=== PATIENT | female | born 1970 | race Caucasian/White ===

== ENCOUNTER 2016-08-21 21:30 | Emergency (ER) | payer BC ==
[2016-08-21 21:35] VITALS: BP 125/63; PULSE 88; TEMP 98.5; BMI 24.4
--- NOTE | 2016-08-21 21:40 | PDOC ---
History of Present Illness - General Chief Complaint: Shortness of Breath Stated Complaint: EXHAUSTION, TRANSIENT SOB Time Seen by Provider: 08/21/16 21:37 History Source: Patient Exam Limitations: No Limitations - History of Present Illness Initial Comments: 08/21/16 23:35 This is a 45-year-old female who comes in complaining of fatigue, anxiety and shortness of breath. Patient is also complaining of some right lower extremity leg or abdominal pain. Patient is complaining of some intermittent palpitations. Patient has a history of anxiety and says that she has not been getting enough sleep and feels exhausted as well. Swelling. Patient has had symptoms intermittent for about a week and a half now. Patient denies any fevers or chills. Patient denies any cough or congestion. Patient denies any recent travel. Patient is not on control and denies any DVT or PE risk factors. Patient denies any chest pain PAST MEDICAL HISTORY: no significant history PAST SURGICAL HISTORY: no significant history FAMILY HISTORY: no pertinant history SOCIAL HISTORY: Pt lives with family and is employed. MEDICATIONS: reviewed ALLERGIES: As per nursing notes Review of Systems General: No fevers or chills, no weakness, no weight loss HEENT: No change in vision. No sore throat,. No ear pain CardioVascular: No chest pain or shortness of breath Respiratory:No cough, or wheezing. Gastrointestinal: no nausea, vomitting, diarrhea or constipation, No rectal bleeding Genitourinary: No dysuria, hematuria, or frequency Musculoskeletal: No joint or muscle pain or swelling Neurologic: No headache, vertigo, dizziness or loss of consciousness Psychiatric: nor depression Skin: No rashes or easy bruising Endocrine: no increased thirst or abnormal weight change Allergic: no skin or latex allergy All other systems reviewed and normal Exam: General: Well-nourished well-developed individual, no acute distress HEENT: Throat: Normal, tonsils normal, no erythema or exudate Neck: Supple, no meningeal signs, no lymphadenopathy Eyes::Pupils equal reactive and round, extraocular motion intact Chest: Nontender to palpation Cardiac: S1-S2 normal, regular rate and rhythm, no murmurs rubs or gallops Respiratory: Lungs clear to auscultation bilateral Abdomen: Soft, nondistended, normal bowel sounds, nontender to palpation diffusely Extremities: Warm, dry, no cyanosis, clubbing, or edema Skin: No rashes Neuro: Alert and oriented x3, nonfocal exam, grossly intact, normal gait Psych: Normal mood and affect Chest x-ray no acute pathology Lab work is normal including negative d-dimer Ultrasound Doppler was done is negative for DVT Assessment and plan: This is a 45-year-old female with vague nonspecific shortness of breath and fatigue complaints. Patient has a history of anxiety and this is most likely secondary to her anxiety. As her workup was negative for any acute medical cause for her symptoms. Patient discharged and told to follow-up with her primary care doctor. Past History - Past Medical History Allergies/Adverse Reactions: Allergies Allergy/AdvReac Type Severity Reaction Status Date / Time codeine AdvReac Intermediate Nausea Verified 08/04/15 20:18 Home Medications: Ambulatory Orders NK [No Known Home Medication] 08/04/15 Other medical history: DENIES - Psycho/Social/Smoking Cessation Hx Anxiety: No Suicidal Ideation: No Smoking History: Never smoked Have you smoked in the past 12 months: Yes Number of Cigarettes Smoked Daily: 3 'Breaking Loose' booklet given: 07/01/15 Hx Alcohol Use: No Drug/Substance Use Hx: No Substance Use Type: None *Physical Exam - Vital Signs Last Vital Signs Temp Pulse Resp BP Pulse Ox 98.5 F 88 16 125/63 100 08/21/16 21:32 08/21/16 21:32 08/21/16 21:32 08/21/16 21:32 08/21/16 21:32 ED Treatment Course - LABORATORY CBC & Chemistry Diagram: 08/21/16 22:10 08/21/16 22:10 *DC/Admit/Observation/Transfer Diagnosis at time of Disposition: Anxiety - Discharge Dispostion Disposition: HOME Condition at time of disposition: Stable - Patient Instructions Additional Instructions: Your workup was negative for any acute medical causes for your symptoms. I think your symptoms most likely are secondary to some stress and anxiety and lack of sleep. Consider following up with a therapist if symptoms persist also taking a class to help you return relaxation techniques such as yoga. Return to the emergency department immediately with ANY new, persistent or worsening symptoms. Continue any medications as previously prescribed by your physician. You should follow up with your primary doctor as soon as possible regarding today's emergency department visit. . Please make sure your doctor reviews the results of your emergency evaluation. Thank you for coming to the Emergency Department today for your care. It was a pleasure to see you today. Please note that your evaluation is INCOMPLETE until you follow-up with your doctor.
[2016-08-21 22:22] LABS: BASOPHIL 0.4 % (0-2.0); EOSINOPHIL 2.4 % (0-4.5); MCH 30.2 pg (25.7-33.7); MCHC 33.2 g/dl (32.0-36.0); MEAN CELL VOLUME 91.1 fl (80-96); MEAN PLT VOLUME 7.7 fl (7.5-11.1); NEUTROPHILS 54.5 % (42.8-82.8); PLATELET COUNT 267 K/MM3 (134-434); RDW 12.8 % (11.6-15.6); WHITE BLOOD COUNT 7.2 K/mm3 (4.0-10.0)
[2016-08-21 22:42] LABS: ALBUMIN 3.9 g/dl (3.5-5.0); ALK PHOS 50 U/L (32-92); ANION GAP 7 (8-16); BILIRUBIN,TOTAL 0.3 mg/dl (0.2-1.0); CALCIUM 9.4 mg/dl (8.4-10.2); CO2 29 mmol/L (22-28); CPK(DFH) 92 IU/L (26-140); CREATININE 0.7 mg/dl (0.6-1.3); GLUCOSE,RANDOM 129 mg/dl (74-106); SGOT/AST 17 U/L (10-42); SGPT/ALT 14 U/L (10-40); TOT PROT 6.8 g/dl (6.4-8.3)
[2016-08-21 22:58] LABS: TROPONIN I (DFP) < 0.03 ng/ml (0.03-0.50)
--- NOTE | 2016-08-23 10:32 | EKG ---
Test Reason : Blood Pressure : / mmHG Vent. Rate : 072 BPM Atrial Rate : 072 BPM P-R Int : 144 ms QRS Dur : 088 ms QT Int : 380 ms P-R-T Axes : 046 007 052 degrees QTc Int : 416 ms NORMAL SINUS RHYTHM INCOMPLETE RBBB Confirmed by JACINTA CRAIG MD ([id number]) on 08/23/2016 10:32:15 AM Referred By: MD FIELDS Confirmed By:JACINTA CRAIG MD
== END 2016-08-21 23:50 | disposition home or self-care (01) ==
LOC: FER 21:30
DX: F41.9 Anxiety disorder, unspecified (principal); Z72.0 Tobacco use
CPT/HCPCS: 36415; 71010-TC; 80053; 82550; 84484; 85025; 85379; 93005; 93971-TC; 99282-25

== ENCOUNTER 2016-12-15 22:47 | Emergency (ER) | payer BC ==
[2016-12-15 22:54] VITALS: BP 138/83; PULSE 93; TEMP 98.5; BMI 23.6
--- NOTE | 2016-12-15 22:55 | PDOC ---
History of Present Illness - General Chief Complaint: Lightheaded Stated Complaint: LIGHTHEADE X ONE WEEK/DIARRHEA X 3 Time Seen by Provider: 12/15/16 22:51 History Source: Patient Exam Limitations: No Limitations - History of Present Illness Initial Comments: 46 yo F no PMH presents with 1 week of lightheadedness. She states that it is constant, unchanged by position, activity, exercise. She has had similar symptoms once in the past, self-limited. She denies any vertiginous symptoms. No cp, SOB, leg swelling. She notes that she had poor appetite today, did not eat or drink, and had an episode of diarrhea. She states that she does not like to drink water, usually drinks soda or tamir. Past History - Past Medical History Allergies/Adverse Reactions: Allergies Allergy/AdvReac Type Severity Reaction Status Date / Time codeine AdvReac Intermediate Nausea Verified 12/15/16 22:49 Home Medications: Ambulatory Orders NK [No Known Home Medication] 08/04/15 Other medical history: DENIES - Psycho/Social/Smoking Cessation Hx Anxiety: No Suicidal Ideation: No Smoking History: Never smoked Have you smoked in the past 12 months: Yes Number of Cigarettes Smoked Daily: 3 Information on smoking cessation initiated: No 'Breaking Loose' booklet given: 07/01/15 Hx Alcohol Use: No Drug/Substance Use Hx: No Substance Use Type: None Review of Systems - Review of Systems Able to Perform ROS?: Yes Comments:: GENERAL/CONSTITUTIONAL: No fever or chills. No weakness. HEAD, EYES, EARS, NOSE AND THROAT: No change in vision. No ear pain or discharge. No sore throat. CARDIOVASCULAR: No chest pain or shortness of breath. RESPIRATORY: No cough, wheezing, or hemoptysis. GASTROINTESTINAL: No nausea, vomiting, diarrhea or constipation. GENITOURINARY: No dysuria, frequency, or change in urination. MUSCULOSKELETAL: No joint or muscle swelling or pain. No neck or back pain. SKIN: No rash NEUROLOGIC: No headache, vertigo, loss of consciousness, or change in strength/ sensation. ENDOCRINE: No increased thirst. No abnormal weight change. HEMATOLOGIC/LYMPHATIC: No anemia, easy bleeding, or history of blood clots. ALLERGIC/IMMUNOLOGIC: No hives or skin allergy. *Physical Exam - Vital Signs Last Vital Signs Temp Pulse Resp BP Pulse Ox 98.5 F 93 H 16 138/83 99 12/15/16 22:50 12/15/16 22:50 12/15/16 22:50 12/15/16 22:50 12/15/16 22:50 - Physical Exam Comments: GENERAL: Awake, alert, and fully oriented, in no acute distress HEAD: No signs of trauma EYES: PERRLA, EOMI, sclera anicteric, conjunctiva clear ENT: Auricles normal inspection, hearing grossly normal, nares patent, oropharynx clear without exudates. Dry mucosa NECK: Normal ROM, supple, no lymphadenopathy, JVD, or masses LUNGS: Breath sounds equal, clear to auscultation bilaterally. No wheezes, and no crackles HEART: Regular rate and rhythm, normal S1 and S2, no murmurs, rubs or gallops ABDOMEN: Soft, nontender, normoactive bowel sounds. No guarding, no rebound. No masses EXTREMITIES: Normal range of motion, no edema. No clubbing or cyanosis. No cords, erythema, or tenderness NEUROLOGICAL: Cranial nerves II through XII grossly intact. Normal speech, normal gait SKIN: Warm, Dry, normal turgor, no rashes or lesions noted. Heart Score/ECG Review - ECG Impressions Comment:: EKG read 01:14- NSR 90 bpm, no acute ST/T changes. ED Treatment Course - LABORATORY CBC & Chemistry Diagram: 12/15/16 23:15 12/15/16 23:15 Medical Decision Making - Medical Decision Making 12/16/16 01:02 Pt reports improvement in symptoms s/p IV fluids. Stable for DC home. *DC/Admit/Observation/Transfer Diagnosis at time of Disposition: Dizziness - Discharge Dispostion Disposition: HOME Condition at time of disposition: Stable Admit: No - Patient Instructions Printed Discharge Instructions: DI for Dizziness-Nonvertigo
[2016-12-15] MEDS ORDERED: SODIUM CHLORIDE 1,000 ML IV STA (23:09)
[2016-12-16 00:03] LABS: PH,URINE 5.5 (4.5-8); URINE APPEARANCE Clear; URINE BILIRUBIN Negative (NEGATIVE); URINE BLOOD 1+ (NEGATIVE); URINE COLOR YELLOW; URINE GLUCOSE (UA) Negative (NEGATIVE); URINE KETONE Negative (NEGATIVE); URINE LEUK ESTERASE Negative (NEGATIVE); URINE NITRITE Negative (NEGATIVE); URINE PROTEIN Negative (NEGATIVE); URINE UROBILINOGEN 0.2 E.U/dl (0.2-1.0)
[2016-12-16 00:26] LABS: TROPONIN I (DFP) < 0.03 ng/ml (0.03-0.50)
[2016-12-16 00:35] LABS: CPK(DFH) 83 IU/L (26-140)
[2016-12-16 00:36] LABS: ALBUMIN 4.3 g/dl (3.5-5.0); ALK PHOS 57 U/L (32-92); ANION GAP 8 (8-16); CALCIUM 9.4 mg/dl (8.4-10.2); CO2 26 mmol/L (22-28); CREATININE 0.7 mg/dl (0.6-1.3); GLUCOSE,RANDOM 130 mg/dl (74-106); SGOT/AST 17 U/L (10-42); SGPT/ALT 15 U/L (10-40); TOT PROT 7.6 g/dl (6.4-8.3)
[2016-12-16 00:38] LABS: COCKROFT - GAULT NT
[2016-12-16 00:47] LABS: BASOPHIL 0.1 % (0-2.0); EOSINOPHIL 1.6 % (0-4.5); MCH 30.3 pg (25.7-33.7); MCHC 32.7 g/dl (32.0-36.0); MEAN CELL VOLUME 92.5 fl (80-96); NEUTROPHILS 68.9 % (42.8-82.8); PLATELET COUNT 263 K/MM3 (134-434); RDW 13.6 % (11.6-15.6); WHITE BLOOD COUNT 9.4 K/mm3 (4.0-10.0)
[2016-12-16 00:48] LABS: BILIRUBIN,TOTAL < 0.3 mg/dl (0.2-1.0)
--- NOTE | 2016-12-16 14:28 | EKG ---
Test Reason : Blood Pressure : / mmHG Vent. Rate : 090 BPM Atrial Rate : 090 BPM P-R Int : 146 ms QRS Dur : 072 ms QT Int : 354 ms P-R-T Axes : 018 012 031 degrees QTc Int : 433 ms POOR DATA QUALITY, INTERPRETATION MAY BE ADVERSELY AFFECTED SINUS RHYTHM RSR' OR QR PATTERN IN V1 SUGGESTS RIGHT VENTRICULAR CONDUCTION DELAY WHEN COMPARED WITH ECG OF 21-AUG-2016 21:45, NO SIGNIFICANT CHANGE WAS FOUND Confirmed by KENIA VALENZUELA MD ([id number]) on 12/16/2016 2:28:18 PM Referred By: MD RAMACHANDRAN Confirmed By:KENIA VALENZUELA MD
== END 2016-12-16 01:16 | disposition home or self-care (01) ==
LOC: FER 22:47
PROC: 3E0337Z Introduction of Electrolytic and Water Balance Substance into Peripheral Vein, Percutaneous Approach (ICD-10-PCS; principal; 2016-12-15)
DX: R42 Dizziness and giddiness (principal); Z72.0 Tobacco use
CPT/HCPCS: 36415; 80053; 81003; 82550; 84484; 84703; 85025; 93005; 99281-25

== ENCOUNTER 2017-11-16 11:11 | Emergency (ER) | payer BC ==
[2017-11-16] MEDS ORDERED: DIPHTH,PERTUSS(ACELL),TET 0.5 ML DISP.SYRIN IM ONE (11:34)
--- NOTE | 2017-11-16 11:40 | PDOC ---
History of Present Illness - General Chief Complaint: Blood/Body Fluid Exposure SJR Stated Complaint: RT THUMB NEEDLE STICK Time Seen by Provider: 11/16/17 11:22 History Source: Patient Exam Limitations: No Limitations - History of Present Illness Initial Comments: 11/16/17 11:33 Patient is a 47F with no significant medical history here today complaining of a needle stick exposure. Patient says that she was stuck by a needle that was around a cat carrier that she was transporting a cat in. The cat was feral but friendly with humans and showed no abnormal behaviors. The patient complains of several minor abrasions on her skin as well from the cat. The needle broke the skin and the patient bled a small amount. The patient brought in the needle in question. The needle is a small gauge hollow point needle with no blood visible. Past History - Past Medical History Allergies/Adverse Reactions: Allergies Allergy/AdvReac Type Severity Reaction Status Date / Time codeine AdvReac Intermediate Nausea Verified 11/16/17 11:14 Home Medications: Ambulatory Orders NK [No Known Home Medication] 08/04/15 - Suicide/Smoking/Psychosocial Hx Smoking History: Never smoked Have you smoked in the past 12 months: Yes Number of Cigarettes Smoked Daily: 3 'Breaking Loose' booklet given: 07/01/15 Hx Alcohol Use: No Drug/Substance Use Hx: No Substance Use Type: None Review of Systems - Review of Systems Comments:: 11/16/17 11:40 GENERAL/CONSTITUTIONAL: No fever or chills. No weakness. HEAD, EYES, EARS, NOSE AND THROAT: No change in vision. No sore throat. CARDIOVASCULAR: No chest pain or shortness of breath RESPIRATORY: No cough, wheezing, or hemoptysis. GASTROINTESTINAL: No nausea, vomiting, diarrhea or constipation. GENITOURINARY: No dysuria, frequency, or change in urination. MUSCULOSKELETAL: No joint or muscle swelling or pain. No neck or back pain. SKIN: No rash NEUROLOGIC: No headache, vertigo, loss of consciousness, or change in strength/ sensation. *Physical Exam - Physical Exam Comments: 11/16/17 11:41 GENERAL: Awake, alert, and fully oriented, in no acute distress SKIN: No visible needle stick injury, small abrasion on left thumb and right elbow. HEAD: No signs of trauma, normocephalic, atraumatic EYES: PERRLA, EOMI, sclera anicteric, conjunctiva clear LUNGS: No distress, speaks full sentences, clear to auscultation bilaterally HEART: Regular rate and rhythm, normal S1 and S2, no murmurs, rubs or gallops, peripheral pulses normal and equal bilaterally. ABDOMEN: Soft, nontender, normoactive bowel sounds. No guarding, no rebound. No masses EXTREMITIES: Normal inspection, Normal range of motion, no edema. No clubbing or cyanosis. NEUROLOGICAL: Cranial nerves II through XII grossly intact. Normal speech, normal gait, no focal sensorimotor deficits Medical Decision Making - Medical Decision Making 11/16/17 11:43 Patient is a 47F here today with needle stick exposure. Vital signs normal and stable. Patient was directed to wash hands, which was done thoroughly. No visible exposure. After risks and benefits were discussed, patient states that she does not want PEP at this time. Will test patient for HIV, HCV, HBV, and HAV. Baseline CBC and CMP drawn. Unknown last tetanus, will give boosterix today. *DC/Admit/Observation/Transfer Diagnosis at time of Disposition: Needle exposure - Discharge Dispostion Disposition: HOME Condition at time of disposition: Good Decision to Admit order: No - Referrals - Patient Instructions Printed Discharge Instructions: How to Handle Body Fluid Exposure -- Non- Healthcare Worker (At Home, [facility] Additional Instructions: You were seen today in the ED for exposure to a needle and a cat scratch. Please follow up with your primary care doctor regarding the needle exposure. Please use bacitracin and keep the cat scratches clean. Please return to the ED if they show any sign of infection such as: fever, redness, swelling or discharging of pus. Please return if you have any new, worsening or concerning symptoms. - Post Discharge Activity
[2017-11-16 11:45] VITALS: BP 110/75; PULSE 91; TEMP 98.4; BMI 23.3
--- NOTE | 2017-11-16 12:06 | PDOC ---
Attending Attestation - Resident Resident Name: Konstantin Magana - ED Attending Attestation I have performed the following: I have examined & evaluated the patient, The case was reviewed & discussed with the resident, I agree w/resident's findings & plan, Exceptions are as noted - HPI HPI: 11/16/17 12:02 47-year-old femalesignificant past medical history here today with a puncture wound from an unknown needle found in a pet box into her right thumb. Was a hollow bore small guage needle. She did place some antiseptic at the site initially and has since washed her hands. No known history of HIV or hepatitis C. The reserve the needle is unknown patient's last tetanus is unknown - Physicial Exam PE: 11/16/17 12:04 Awake alert no acute distress cardiac and lung exam is unremarkable with fair breath sounds bilaterally heart is regular no murmurs rubs or gallops. Skin examination reveals a small nonbleeding and punctate wound to the right thumb barely visible no active bleeding neurovascularly intact - Medical Decision Making 11/16/17 12:05 Status post needle stick to the right thumb with an unknown needle. Plan send baseline HIV hepatitis C and liver function studies. Patient will be given a tetanus due to the small gauge of the needle it is small wrist or HIV therefore the patient is declining HIV prophylaxis informed regarding the need to follow- up with a 6 week 6 month follow-up for possible seizure conversion recall the results of the tests from today
[2017-11-16 12:08] LABS: HEMATOCRIT 40.6 % (32.4-45.2); HEMOGLOBIN 13.9 GM/dl (10.7-15.3); MCH 31.6 pg (25.7-33.7); MCHC 34.4 g/dl (32.0-36.0); MEAN CELL VOLUME 91.9 fl (80-96); MEAN PLT VOLUME 8.1 fl (7.5-11.1); PLATELET COUNT 297 K/MM3 (134-434); RBC 4.42 M/mm3 (3.60-5.2); RDW 13.3 % (11.6-15.6); WHITE BLOOD COUNT 8.6 K/mm3 (4.0-10.8)
[2017-11-16 12:25] LABS: ALBUMIN 4.3 g/dl (3.5-5.0); ALK PHOS 53 U/L (32-92); ANION GAP 6 (8-16); BILIRUBIN,TOTAL 0.8 mg/dl (0.2-1.0); BLOOD UREA NITROGEN 17 mg/dl (7-18); CALCIUM 9.1 mg/dl (8.4-10.2); CHLORIDE 104 mmol/L (98-107); CO2 22 mmol/L (22-28); GLUCOSE,RANDOM 83 mg/dl (74-106); POTASSIUM 4.4 mmol/L (3.5-5.1); SGOT/AST 18 U/L (10-42); SGPT/ALT 13 U/L (10-40); SODIUM 132 mmol/L (136-145); TOT PROT 7.4 g/dl (6.4-8.3)
[2017-11-16 12:35] LABS: CREATININE < 0.8 mg/dl (0.6-1.3)
[2017-11-17 14:17] LABS: HBSAG SCREEN Negative (Negative); HEP B CORE AB, TOT Negative (Negative)
== END 2017-11-16 12:00 | disposition home or self-care (01) ==
LOC: FER 11:11
PROC: 3E0234Z Introduction of Serum, Toxoid and Vaccine into Muscle, Percutaneous Approach (ICD-10-PCS; principal; 2017-11-16)
DX: T75.89XA Other specified effects of external causes, initial encounter (principal); W46.1XXA Contact with contaminated hypodermic needle, initial encounter; Y93.89 Activity, other specified; Y92.89 Other specified places as the place of occurrence of the external cause; Z88.5 Allergy status to narcotic agent
CPT/HCPCS: 36415; 80053; 85027; 86704; 86706; 86708; 87340; 87389; 90715; 99282-25

== ENCOUNTER 2018-09-01 22:41 | Emergency (ER) | payer BC ==
[2018-09-01 22:51] VITALS: BP 119/75; PULSE 85; TEMP 97.9; BMI 23.8
--- NOTE | 2018-09-01 22:52 | PDOC ---
History of Present Illness <Laura Cooper - Last Filed: 09/01/18 23:44> - General History Source: Patient Exam Limitations: No Limitations <Flakita Candelaria I - Last Filed: 09/01/18 23:56> - General Chief Complaint: Palpitations Stated Complaint: HEART RACING/DIARRHEA Time Seen by Provider: 09/01/18 22:51 - History of Present Illness Initial Comments: The patient is a 47 year old female (former smoker, quit 2 years ago), with no significant PMH, who presents to the emergency department today complaining of chest palpitations, abdominal pain, and diarrhea for one day. Patient notes she began to experience chest palpitations shortly after falling asleep prior to arrival. She notes that she ate dinner approximately 4 hours ago (chicken cutlets), and fell asleep shortly after. Patient woke up to chest palpitations, what she describes as tightness and burning. She measured her heart rate at 100 bpm and her blood pressure at 140 systolic (doesnt recall diastolic). Patient notes she saw a fancy needleworker 2 years ago, and said that there was something on her EKG but she doesnt recall. She notes that her ECCO was normal at the time. Patient reports associated belching, nausea, and chills. She also complains of diffuse abdominal pain and diarrhea. Patient rates the diffuse abdominal pain as 3/10. She reports 2 episodes of loose, watery stool. She reports one episode of diarrhea happened after waking up, and one upon arrival to the ED. Patient denies history of similar symptoms. The patient shortness of breath, headache and dizziness. Denies fever, vomit, and constipation. Denies dysuria, frequency, urgency and hematuria. PAST MEDICAL HISTORY: no significant history PAST SURGICAL HISTORY: no significant history FAMILY HISTORY: Mitral valve prolapse (Mother), AICD (Father), 2 stents (Father ), and vaso-vagal syncope (father) SOCIAL HISTORY: Pt lives with family and is employed. Former smoker, quit 2 years ago (used to smoke 1 pack a day for 6 years) MEDICATIONS: reviewed ALLERGIES: Codeine PCP; Dr. Tuyet Mcfarland Adult ROS General: +Chills. No fevers, no weakness, no weight loss HEENT: No change in vision. No sore throat,. No ear pain CardioVascular: +Chest palpitations. +Chest tightness. +Chest burning. No shortness of breath Respiratory:No cough, or wheezing. Gastrointestinal: +Belching. +Nausea. +2 episodes of diarrhea- loose & watery stool. No vomiting or constipation, No rectal bleeding Genitourinary: No dysuria, hematuria, or frequency Abdominal: +Diffuse abdominal pain. Musculoskeletal: No joint or muscle pain or swelling Neurologic: No headache, vertigo, dizziness or loss of consciousness Psychiatric: nor depression Skin: No rashes or easy bruising Endocrine: no increased thirst or abnormal weight change Allergic: no skin or latex allergy All other systems reviewed and normal Adult Exam: General: Well-nourished well-developed individual, no acute distress HEENT: Throat: Normal, tonsils normal, no erythema or exudate Neck: Supple, no meningeal signs, no lymphadenopathy Eyes::Pupils equal reactive and round, extraocular motion intact Chest: Nontender to palpation Cardiac: S1-S2 normal, regular rate and rhythm, no murmurs rubs or gallops Respiratory: Lungs clear to auscultation bilateral Abdomen: Soft, nondistended, normal bowel sounds, nontender to palpation diffusely Extremities: Warm, dry, no cyanosis, clubbing, or edema Skin: No rashes Neuro: Alert and oriented x3, nonfocal exam, grossly intact, normal gait Psych: Normal mood and affect 09/01/18 23:44 (Laura Cooper) 09/01/18 23:08 A portion of this note was documented by scribe services under my direction. I have reviewed the details of the note, within reason, and agree with the documentation with the following case summary and management plan written by me. Patient treated in the ED. Nursing notes are reviewed and incorporated into the medical decision-making. Vital signs reviewed. Assessment and plan: This is a 47-year-old female who comes in complaining of acute onset of palpitations that lasted briefly. Patient fell asleep sitting up and when she woke up she felt palpitations and a burning sensation in her esophagus/substernal area. Symptoms have since resolved. Patient did check her blood pressure which was normal and heart rate which was 100. Patient has a couple risk factors including a smoking history and stopped several years ago after his 6-pack-year history and a father who has coronary artery disease and has had 3 stents We'll obtain CBC, comp, EKG and cardiac enzymes. 09/01/18 23:56 EKG shows normal sinus rhythm, normal intervals, no acute ST-T wave changes normal EKG Cardiac enzymes are not measurable, patient's glucose is mildly elevated at 123 otherwise her workup is normal (Flakita Candelaria I) Past History <Laura Cooper - Last Filed: 09/01/18 23:44> - Past Medical History COPD: No - Immunization History Td Vaccination: Yes Immunization Up to Date: Yes - Suicide/Smoking/Psychosocial Hx Smoking History: Never smoked Have you smoked in the past 12 months: No Number of Cigarettes Smoked Daily: 3 'Breaking Loose' booklet given: 07/01/15 Hx Alcohol Use: No Drug/Substance Use Hx: No Substance Use Type: None <Flakita Candelaria I - Last Filed: 09/01/18 23:56> - Past Medical History Allergies/Adverse Reactions: Allergies Allergy/AdvReac Type Severity Reaction Status Date / Time codeine AdvReac Intermediate Nausea Verified 12/20/17 20:18 Home Medications: Ambulatory Orders NK [No Known Home Medication] 09/01/18 - Vital Signs Last Vital Signs Temp Pulse Resp BP Pulse Ox 97.9 F 85 16 119/75 100 09/01/18 22:41 09/01/18 22:41 09/01/18 22:41 09/01/18 22:41 09/01/18 22:41 - Procedure Monitoring Vital Signs: Procedure Monitoring Vital Signs Temperature 97.9 F 09/01/18 22:41 Pulse Rate 85 09/01/18 22:41 Respiratory Rate 16 09/01/18 22:41 Blood Pressure 119/75 09/01/18 22:41 O2 Sat by Pulse Oximetry (%) 100 09/01/18 22:41 ED Treatment Course - LABORATORY CBC & Chemistry Diagram: 09/01/18 23:00 09/01/18 23:00 <Laura Cooper - Last Filed: 09/01/18 23:44> - LABORATORY CBC & Chemistry Diagram: 09/01/18 23:00 09/01/18 23:00 <Flakita Candelaria I - Last Filed: 09/01/18 23:56> - ADDITIONAL ORDERS Additional order review: Laboratory Results 09/01/18 09/01/1809/01/19 23:00 23:00 23:00 Sodium 135 L Potassium 3.5 Chloride 101 Anion Gap 28 H BUN 14 Creatinine 0.7 Creat Clearance w eGFR > 60 Random Glucose 123 H Calcium 9.1 Total Bilirubin 0.7 AST 20 ALT 15 Alkaline Phosphatase 58 Creatine Kinase 86 Troponin I < 0.03 Total Protein 6.8 Albumin 3.9 09/01/18 23:00 RBC 4.06 MCV 92.1 MCHC 33.2 RDW 12.5 MPV 8.3 Neutrophils % 55.9 Lymphocytes % 32.2 Monocytes % 9.5 Eosinophils % 1.6 Basophils % 0.8 - Medications Given in the ED: ED Medications Discontinued Medications Generic Name Dose Route Start Last Admin Trade Name Santyq PRN Reason Stop Dose Admin Al Hydroxide/Mg Hydroxide 30 ml 09/01/18 22:56 09/01/18 23:14 Mylanta Oral Suspension - PO 09/01/18 22:57 30 ml ONCE ONE Administration Loperamide HCl 4 mg 09/01/18 23:06 09/01/18 23:33 Imodium - PO 09/01/18 23:07 4 mg ONCE ONE Administration *DC/Admit/Observation/Transfer <Laura Cooper - Last Filed: 09/01/18 23:44> - Discharge Dispostion Decision to Admit order: No <Flakita Candelaria I - Last Filed: 09/01/18 23:56> Diagnosis at time of Disposition: Palpitations - Discharge Dispostion Disposition: HOME Condition at time of disposition: Stable - Referrals Referrals: Tuyet Mcfarland MD [Primary Care Provider] - - Patient Instructions Additional Instructions: Most likely her symptoms are due to some acid reflux. If they recur take some Maalox or Tums. You're cardiogram was normal. Your workup was negative for any acute causes of your symptoms. Return to the emergency department immediately with ANY new, persistent or worsening symptoms. Continue any medications as previously prescribed by your physician. You should follow up with your primary doctor as soon as possible regarding today's emergency department visit. . Please make sure your doctor reviews the results of your emergency evaluation. Thank you for coming to the Emergency Department today for your care. It was a pleasure to see you today. Please note that your evaluation is INCOMPLETE until you follow-up with your doctor. - Post Discharge Activity - Attestations Scribe Attestion: Documentation prepared by MIMA Quach, acting as associate medical director for Flakita Candelaria MD. 09/01/18 23:44 (Laura Cooper)
[2018-09-01] MEDS ORDERED: MAG HYDROX/AL HYDROX/SIMETH 30 ML UNIT-DOSE CUP PO ONE (22:56)
[2018-09-01] MEDS ORDERED: MAG HYDROX/AL HYDROX/SIMETH 30 ML UNIT-DOSE CUP ONE (23:04)
[2018-09-01] MEDS ORDERED: LOPERAMIDE HCL 2 MG CAPSULE PO ONE (23:06)
[2018-09-01 23:21] LABS: BASO % 0.8 % (0-2.0); EOS % 1.6 % (0-4.5); HEMATOCRIT 37.4 % (32.4-45.2); HEMOGLOBIN 12.4 GM/dl (10.7-15.3); LYMPH % 32.2 % (8-40); MCH 30.6 pg (25.7-33.7); MCHC 33.2 g/dl (32.0-36.0); MEAN CELL VOLUME 92.1 fl (80-96); MEAN PLT VOLUME 8.3 fl (7.5-11.1); MONO % 9.5 % (3.8-10.2); NEUT % 55.9 % (42.8-82.8); PLATELET COUNT 237 K/MM3 (134-434); RBC 4.06 M/mm3 (3.60-5.2); RDW 12.5 % (11.6-15.6)
[2018-09-01] MEDS ORDERED: LOPERAMIDE HCL 2 MG CAPSULE ONE (23:31)
[2018-09-01 23:33] LABS: ALBUMIN 3.9 g/dl (3.4-5.0); ALK PHOS 58 U/L (45-117); ANION GAP 28 MMOL/L (8-16); BILIRUBIN,TOTAL 0.7 mg/dl (0.2-1); BLOOD UREA NITROGEN 14 mg/dl (7-18); CALCIUM 9.1 mg/dl (8.5-10); CHLORIDE 101 mmol/L (98-107); CREATININE 0.7 mg/dl (0.55-1.3); GLUCOSE,RANDOM 123 mg/dl (74-106); POTASSIUM 3.5 mmol/L (3.5-5.1); SGOT/AST 20 U/L (15-37); SGPT/ALT 15 U/L (13-61); SODIUM 135 mmol/L (136-145); TOT PROT 6.8 g/dl (6.4-8.2)
[2018-09-02] LABS: CO2 23 mmol/L (21-32)
--- NOTE | 2018-09-02 15:05 | EKG ---
Test Reason : Blood Pressure : / mmHG Vent. Rate : 078 BPM Atrial Rate : 078 BPM P-R Int : 164 ms QRS Dur : 084 ms QT Int : 370 ms P-R-T Axes : 025 026 051 degrees QTc Int : 421 ms NORMAL SINUS RHYTHM NORMAL ECG WHEN COMPARED WITH ECG OF 16-DEC-2016 01:10, NO SIGNIFICANT CHANGE WAS FOUND Confirmed by JACINTA CRAIG MD ([id number]) on 09/02/2018 3:05:08 PM Referred By: DR HEAD Confirmed By:JACINTA CRAIG MD
== END 2018-09-02 00:05 | disposition home or self-care (01) ==
LOC: FER 22:41
DX: R00.2 Palpitations (principal); Z87.891 Personal history of nicotine dependence
CPT/HCPCS: 36415; 80053; 82550; 84484; 85025; 93005; 99283-25

== ENCOUNTER 2018-10-10 19:30 | Emergency (ER) | payer BC ==
[2018-10-10 19:37] VITALS: BP 110/85; PULSE 114; TEMP 99.4; BMI 23.4
[2018-10-10] MEDS ORDERED: SODIUM CHLORIDE 1,000 ML IV ONE ×2 (19:53→20:55)
[2018-10-10] MEDS ORDERED: ONDANSETRON 4 MG/2 ML VIAL IVPB ONE (19:53)
--- NOTE | 2018-10-10 19:54 | PDOC ---
History of Present Illness - General History Source: Patient Exam Limitations: No Limitations - History of Present Illness Initial Comments: 10/10/18 20:01 The patient is a 47 year old female presenting with family, who presents to the ED complaining of abdominal pain, back pain, headache, diarrhea, nausea and vomiting since 3am last night. She describes her abdominal pain as a sensation of "cramps", mild to moderate in severity. She reports that the last thing she ate was a hamburger at 11am and has not eating since due to her symptoms. She notes that she ate at a restaurant, where others in her libertarian also had hamburgers but are not experiencing any type of symptoms. The patient denies chest pain, shortness of breath, and dizziness. Denies fever , chills, or constipation. Denies dysuria, frequency, urgency and hematuria. LMP: 2018 PAST MEDICAL HISTORY: GERD PAST SURGICAL HISTORY: no significant history FAMILY HISTORY: no pertinent history SOCIAL HISTORY: Pt lives with family and is employed. MEDICATIONS: reviewed ALLERGIES: As per nursing notes GENERAL/CONSTITUTIONAL: No fever or chills. No weakness. HEAD, EYES, EARS, NOSE AND THROAT: No change in vision. No ear pain or discharge. No sore throat. GASTROINTESTINAL: (+) Abdominal pain, nausea, vomiting, diarrhea. No constipation. GENITOURINARY: No dysuria, frequency, or change in urination. CARDIOVASCULAR: No chest pain or shortness of breath. RESPIRATORY: No cough, wheezing, or hemoptysis. MUSCULOSKELETAL: (+) Back pain. No joint or muscle swelling or pain. No neck pain. SKIN: No rash NEUROLOGIC: (+) Headache. No vertigo, loss of consciousness, or change in strength/sensation. ENDOCRINE: No increased thirst. No abnormal weight change. HEMATOLOGIC/LYMPHATIC: No anemia, easy bleeding, or history of blood clots. ALLERGIC/IMMUNOLOGIC: No hives or skin allergy. Constitutional: Awake, alert, oriented. No acute distress. Head: Normocephalic. Atraumatic Eyes: PERRL. EOMI. Conjunctivae are not pale. ENT: (+) Mucous membranes are dry. Posterior pharynx without exudates or erythema. Uvula midline. Neck: Supple. Full ROM. No lymphadenopathy. Cardiovascular: (+) Mild tachycardia. Regular rhythm. S1, S2 regular. Distal pulses are 2+ and symmetric. Pulmonary/Chest: No evidence of respiratory distress. Clear to auscultation bilaterally No wheezing, rales or rhonchi. Abdominal: Soft and non-distended. There is no tenderness. No rebound, guarding or rigidity. No organomegaly. No palpable masses. Good bowel sounds. Back: No CVA tenderness. Musculoskeletal: No edema. No cyanosis. No clubbing. Full range of motion in all extremities. Nocalf tenderness. Radial/pedal pulses are intact and 2+ bilaterally Skin: Skin is warm and dry. No petechiae. No purpura. Neurological: Alert and oriented to person, place, and time. Cranial nerves II -XII are grossly intact. Normal speech. Strength is grossly symmetric. No sensory deficits. Psychiatric: Good eye contact. Normal interaction, affect and behavior. <Rosendo Mcdowell - Last Filed: 10/10/18 20:16> - General History Source: Patient Exam Limitations: No Limitations - History of Present Illness Initial Comments: 10/10/18 20:28 A portion of this note was documented by scribe services under my direction. I have reviewed the details of the note, within reason, and agree with the documentation with the following case summary and management plan written by me. Patient treated in the ED. Nursing notes are reviewed and incorporated into the medical decision-making. Vital signs reviewed. Assessment plan: This is a 47-year-old Perimenopausal female who comes in complaining of vomiting and diarrhea times approximately 15 hours. Patient does appear to be clinically dry with mild dehydration otherwise she had a normal exam. Patient hydrated with IV saline and given Zofran. 10/10/18 21:28 Patient received 2 L of saline and Zofran and Reglan. Prescription sent to patient's pharmacy for additional Zofran and patient discharged home. Patient's blood work was otherwise normal with normal white count and urine did show 2+ blood however no evidence of infection. <Flakita Candelaria I - Last Filed: 10/10/18 21:31> - General Chief Complaint: Vomiting/Diarrhea Stated Complaint: VOMITING, DIARRHEA Time Seen by Provider: 10/10/18 19:37 Past History <Rosendo Mcdowell - Last Filed: 10/10/18 20:16> - Past Medical History COPD: No Other medical history: DENIES - Immunization History Td Vaccination: Yes Immunization Up to Date: Yes - Suicide/Smoking/Psychosocial Hx Smoking History: Never smoked Have you smoked in the past 12 months: No Number of Cigarettes Smoked Daily: 3 Information on smoking cessation initiated: No 'Breaking Loose' booklet given: 09/02/18 Hx Alcohol Use: No Drug/Substance Use Hx: No Substance Use Type: None <Flakiat Candelaria I - Last Filed: 10/10/18 21:31> - Past Medical History Allergies/Adverse Reactions: Allergies Allergy/AdvReac Type Severity Reaction Status Date / Time codeine AdvReac Intermediate Nausea Verified 10/10/18 19:34 Home Medications: Ambulatory Orders Ondansetron [Zofran *Odt*] 8 mg SL TID #12 od.tablet 10/10/18 *Physical Exam - Vital Signs Last Vital Signs Temp Pulse Resp BP Pulse Ox 99.4 F 114 H 20 110/85 98 10/10/18 19:30 10/10/18 19:30 10/10/18 19:30 10/10/18 19:30 10/10/18 19:30 <Rosendo Mcdowell - Last Filed: 10/10/18 20:16> - Vital Signs Last Vital Signs Temp Pulse Resp BP Pulse Ox 99.4 F 114 H 20 110/85 98 10/10/18 19:30 10/10/18 19:30 10/10/18 19:30 10/10/18 19:30 10/10/18 19:30 <Flakita Candelaria I - Last Filed: 10/10/18 21:31> ED Treatment Course - LABORATORY CBC & Chemistry Diagram: 10/10/18 20:04 10/10/18 20:04 <Rosendo Mcdowell - Last Filed: 10/10/18 20:16> - LABORATORY CBC & Chemistry Diagram: 10/10/18 20:04 10/10/18 20:04 <Flakita Candelaria I - Last Filed: 10/10/18 21:31> *DC/Admit/Observation/Transfer - Attestations Scribe Attestion: 10/10/18 20:02 Documentation prepared by Rosendo Mcdowell, acting as medical record librarians teacher for Flakita Candelaria MD <Rosendo Mcdowell - Last Filed: 10/10/18 20:16> - Discharge Dispostion Decision to Admit order: No <Flakita Candelaria I - Last Filed: 10/10/18 21:31> Diagnosis at time of Disposition: Vomiting and diarrhea - Discharge Dispostion Disposition: HOME Condition at time of disposition: Stable - Referrals Referrals: Tuyet Mcfarland MD [Primary Care Provider] - - Patient Instructions Additional Instructions: I sent a prescription to your pharmacy for nausea medication you can get it filled and take one as often as 3 times a day as needed. Clear liquids only for the next 6 hours.. After that if you have had no further vomiting you may have bananas, rice, applesauce, or toast. If no further vomiting for another 8 hours you may have regular food. If you vomit again then nothing to eat or drink for 2 hours. then start back with the clear liquids. Return to the emergency department immediately with ANY new, persistent or worsening symptoms. You MUST call and follow up with your doctor tomorrow if not better. Please make sure your doctor reviews the results of your emergency evaluation. - Post Discharge Activity
[2018-10-10] MEDS ORDERED: ONDANSETRON 4 MG/2 ML VIAL ONE (20:07)
[2018-10-10 20:14] LABS: HEMATOCRIT 39.7 % (32.4-45.2); HEMOGLOBIN 12.9 GM/dl (10.7-15.3); MCH 30.3 pg (25.7-33.7); MCHC 32.5 g/dl (32.0-36.0); MEAN CELL VOLUME 93.3 fl (80-96); MEAN PLT VOLUME 8.4 fl (7.5-11.1); PLATELET COUNT 209 K/MM3 (134-434); RBC 4.26 M/mm3 (3.60-5.2); RDW 13.4 % (11.6-15.6); WHITE BLOOD COUNT 8.9 K/mm3 (4.0-10.8)
[2018-10-10 20:30] LABS: ALBUMIN 3.8 g/dl (3.4-5.0); ALK PHOS 52 U/L (45-117); ANION GAP 10 MMOL/L (8-16); BILIRUBIN,TOTAL 0.6 mg/dl (0.2-1); BLOOD UREA NITROGEN 14 mg/dl (7-18); CALCIUM 8.9 mg/dl (8.5-10); CHLORIDE 99 mmol/L (98-107); CO2 25 mmol/L (21-32); CREATININE 0.7 mg/dl (0.55-1.3); GLUCOSE,RANDOM 113 mg/dl (74-106); POTASSIUM 3.7 mmol/L (3.5-5.1); SGOT/AST 20 U/L (15-37); SGPT/ALT 15 U/L (13-61); SODIUM 134 mmol/L (136-145); TOT PROT 6.5 g/dl (6.4-8.2)
[2018-10-10] MEDS ORDERED: METOCLOPRAMIDE HCL INJECTION 10 MG/2 ML VIAL IVPUSH ONE (20:55)
[2018-10-10] MEDS ORDERED: METOCLOPRAMIDE HCL INJECTION 10 MG/2 ML VIAL ONE (20:56)
[2018-10-10 23:01] LABS: EPITHELIAL CELLS FEW /hpf
[2018-10-10 23:02] LABS: PLATELET ESTIMATE ADEQUATE
--- NOTE | 2018-10-11 14:45 | EKG ---
Test Reason : Blood Pressure : / mmHG Vent. Rate : 096 BPM Atrial Rate : 096 BPM P-R Int : 134 ms QRS Dur : 078 ms QT Int : 334 ms P-R-T Axes : 045 051 057 degrees QTc Int : 421 ms NORMAL SINUS RHYTHM NORMAL ECG WHEN COMPARED WITH ECG OF 01-SEP-2018 23:13, NO SIGNIFICANT CHANGE WAS FOUND Confirmed by Nathan Mccarthy ([id number]) on 10/11/2018 2:45:10 PM Referred By: Confirmed By:Nathan Mccarthy
== END 2018-10-10 21:49 | disposition home or self-care (01) ==
LOC: FER 19:30
PROC: 3E033GC Introduction of Other Therapeutic Substance into Peripheral Vein, Percutaneous Approach (ICD-10-PCS; principal; 2018-10-10)
PROC: 3E0337Z Introduction of Electrolytic and Water Balance Substance into Peripheral Vein, Percutaneous Approach (ICD-10-PCS; 2018-10-10)
DX: R11.10 Vomiting, unspecified (principal); R19.7 Diarrhea, unspecified; Z72.0 Tobacco use
CPT/HCPCS: 36415; 80053; 81003; 81015; 83690; 84703; 85025; 93005; 99283-25; J7030

== ENCOUNTER 2018-11-02 23:37 | Emergency (ER) | payer BC ==
[2018-11-02 23:44] VITALS: BP 130/85; PULSE 90; TEMP 97.9; BMI 23.4
--- NOTE | 2018-11-02 23:45 | PDOC ---
History of Present Illness - General Chief Complaint: Nausea/Vomiting Stated Complaint: NAUSEA/VOMITING Time Seen by Provider: 11/02/18 23:40 History Source: Patient Exam Limitations: No Limitations - History of Present Illness Initial Comments: 11/02/18 23:54 This is a 48-year-old female who comes in complaining of nausea vomiting prior to coming in. Patient said that all of a sudden she felt very nauseous and got up and ran to the bathroom and vomited a few times in a row. Since then she has not vomited. Patient said post vomiting she developed some palpitations and felt short of breath so decided to come to the emergency department. Patient denied any chest pain. Patient denied any palpitations at this time. Symptoms had resolved by the time she got here. Patient denies any nausea as well as this time. Patient is otherwise healthy. Allergies: as per nursing notes Past Medical History: none Social history: Lives with family. No smoking. No alcohol. No illicit drugs. Surgical history: None General: No fevers or chills, no weakness, no weight loss HEENT: No change in vision. No sore throat,. No ear pain CardioVascular: no chest discomfort. + shortness of breath associated with palpitations Respiratory:No cough, or wheezing. Gastrointestinal: + nausea, + vomiting, no diarrhea or constipation, No rectal bleeding Genitourinary: No dysuria, hematuria, or frequency Musculoskeletal: No joint or muscle pain or swelling Neurologic: No headache, vertigo, dizziness or loss of consciousness Psychiatric: nor depression Skin: No rashes or easy bruising Endocrine: no increased thirst or abnormal weight change Allergic: no skin or latex allergy All other systems reviewed and normal Exam: General: Well-nourished well-developed individual, no acute distress HEENT: Throat: Normal, tonsils normal, no erythema or exudate Neck: Supple, no meningeal signs, no lymphadenopathy Eyes::Pupils equal reactive and round, extraocular motion intact Chest: Nontender to palpation Cardiac: S1-S2 normal, regular rate and rhythm, no murmurs rubs or gallops Respiratory: Lungs clear to auscultation bilateral Abdomen: Soft, nondistended, normal bowel sounds, there is no tenderness on palpation diffusely Extremities: Warm, dry, no cyanosis, clubbing, or edema Skin: No rashes Neuro: Alert and oriented x3, CN II - XII intact, nonfocal exam with normal strength, normal sensation, normal reflexes, normal gait, Psych: Normal mood and affect Assessment and plan: This is a 48-year-old female who makes frequent visits to this emergency department. Patient is been here 3 times for nausea vomiting in the last 6 months. Patient had a abbreviated workup and she was no longer feeling nauseous or having symptoms. EKG was done which showed Patient given Zofran and was able to tolerate by mouth's and discharged home Past History - Past Medical History Allergies/Adverse Reactions: Allergies Allergy/AdvReac Type Severity Reaction Status Date / Time codeine AdvReac Intermediate Nausea Verified 10/10/18 19:34 Home Medications: Ambulatory Orders NK [No Known Home Medication] 11/02/18 COPD: No - Immunization History Td Vaccination: Yes Immunization Up to Date: Yes - Suicide/Smoking/Psychosocial Hx Smoking History: Never smoked Have you smoked in the past 12 months: No Number of Cigarettes Smoked Daily: 3 'Breaking Loose' booklet given: 09/02/18 Hx Alcohol Use: No Drug/Substance Use Hx: No Substance Use Type: None *DC/Admit/Observation/Transfer Diagnosis at time of Disposition: Nausea and vomiting - Discharge Dispostion Disposition: HOME Condition at time of disposition: Stable Decision to Admit order: No - Referrals Referrals: Tuyet Mcfarland MD [Primary Care Provider] - - Patient Instructions Additional Instructions: Clear liquids only for the next 6 hours.. After that if you have had no further vomiting you may have bananas, rice, applesauce, or toast. If no further vomiting for another 8 hours you may have regular food. If you vomit again then nothing to eat or drink for 2 hours. then start back with the clear liquids. Return to the emergency department immediately with ANY new, persistent or worsening symptoms. You MUST call and follow up with your doctor tomorrow if not better. Please make sure your doctor reviews the results of your emergency evaluation. Return to the emergency department immediately with ANY new, persistent or worsening symptoms. Continue any medications as previously prescribed by your physician. Thank you for coming to the Emergency Department today for your care. It was a pleasure to see you today. Please note that your evaluation is INCOMPLETE until you follow-up with your doctor. - Post Discharge Activity
[2018-11-02] MEDS ORDERED: ONDANSETRON *ODT* 4 MG TABLET SL ONE (23:54)
[2018-11-02] MEDS ORDERED: ONDANSETRON *ODT* 4 MG TABLET ONE (23:58)
--- NOTE | 2018-11-03 12:10 | EKG ---
Test Reason : Blood Pressure : / mmHG Vent. Rate : 077 BPM Atrial Rate : 077 BPM P-R Int : 156 ms QRS Dur : 090 ms QT Int : 372 ms P-R-T Axes : 040 042 057 degrees QTc Int : 420 ms NORMAL SINUS RHYTHM NORMAL ECG WHEN COMPARED WITH ECG OF 10-OCT-2018 20:26, NO SIGNIFICANT CHANGE WAS FOUND Confirmed by INA ALMODOVAR MD ([id number]) on 11/03/2018 12:09:42 PM Referred By: MD FIELDS Confirmed By:INA ALMODOVAR MD
== END 2018-11-03 00:38 | disposition home or self-care (01) ==
LOC: FER 23:37
DX: R11.2 Nausea with vomiting, unspecified (principal)
CPT/HCPCS: 93005; 99282-25; Q0162

== ENCOUNTER 2020-07-31 13:56 | Emergency (ER) | payer BC ==
[2020-07-31 14:24] VITALS: BP 120/80; PULSE 93; TEMP 99; BMI 3233.8
[2020-07-31] MEDS ORDERED: KETOROLAC TROMETHAMINE 30 MG/1 ML VIAL IM ONE (14:40)
[2020-07-31] MEDS ORDERED: KETOROLAC TROMETHAMINE 30 MG/1 ML VIAL ONE (15:05)
[2020-07-31 15:24] LABS: BASO % 1.2 % (0-2.0); EOS % 1.1 % (0-4.5); HEMATOCRIT 37.4 % (32.4-45.2); HEMOGLOBIN 12.6 GM/dl (10.7-15.3); LYMPH % 20.3 % (8-40); MCH 30.9 pg (25.7-33.7); MCHC 33.6 g/dl (32.0-36.0); MEAN CELL VOLUME 92.1 fl (80-96); MEAN PLT VOLUME 8.4 fl (7.5-11.1); MONO % 8.2 % (3.8-10.2); NEUT % 69.2 % (42.8-82.8); PLATELET COUNT 220 K/MM3 (134-434); RBC 4.07 M/mm3 (3.60-5.2); WHITE BLOOD COUNT 7.5 K/mm3 (4.0-10.8)
[2020-07-31 15:33] LABS: ALBUMIN 4.1 g/dl (3.4-5.0); BILIRUBIN,TOTAL 0.7 mg/dl (0.2-1); CREATININE 0.6 mg/dl (0.55-1.3); TOT PROT 6.9 g/dl (6.4-8.2)
[2020-07-31] MEDS ORDERED: LIDOCAINE 5% TOPICAL PATCH TP ONE (15:51)
[2020-07-31] MEDS ORDERED: LIDOCAINE 5% TOPICAL PATCH ONE (15:57)
== END 2020-07-31 16:15 | disposition home or self-care (01) ==
LOC: FER 13:56
DX: M54.5 Low back pain (principal)
CPT/HCPCS: 36415; 74176-TC; 80053; 81003; 81015; 85025; 87086; 99284-25

== ENCOUNTER 2022-02-23 18:14 | Observation (INO) | payer BC ==
[2022-02-23] MEDS ORDERED: METOCLOPRAMIDE HCL INJECTION 10 MG/2 ML VIAL IVPB ONE (19:30)
[2022-02-23] MEDS ORDERED: MECLIZINE HCL 25 MG TABLET (FP) PO ONE (19:31)
[2022-02-23] MEDS ORDERED: SODIUM CHLORIDE 0.9% 500 ML INFUS.BAG IV ONE (19:31)
[2022-02-23] MEDS ORDERED: MECLIZINE HCL 25 MG TABLET (FP) ONE (20:26)
[2022-02-23] MEDS ORDERED: METOCLOPRAMIDE HCL INJECTION 10 MG/2 ML VIAL ONE (20:27)
[2022-02-23 21:41] LABS: URINE APPEARANCE CLEAR; URINE BILIRUBIN NEGATIVE (NEGATIVE); URINE COLOR YELLOW; URINE GLUCOSE (UA) NEGATIVE (NEGATIVE); URINE KETONE TRACE (NEGATIVE); URINE LEUK ESTERASE NEGATIVE (NEGATIVE); URINE NITRITE NEGATIVE (NEGATIVE); URINE PROTEIN NEGATIVE (NEGATIVE); URINE UROBILINOGEN 0.2 mg/dL (0.2-1.0)
[2022-02-23 21:48] LABS: BASO % 0.4 % (0-2.0); EOS % 0.1 % (0-4.5); HEMATOCRIT 38.6 % (32.4-45.2); HEMOGLOBIN 13.3 GM/dL (10.7-15.3); LYMPH % 8.1 % (8-40); MCH 30.7 pg (25.7-33.7); MCHC 34.4 g/dl (32.0-36.0); MEAN CELL VOLUME 89.3 fl (80-96); MEAN PLT VOLUME 8.5 fl (7.5-11.1); MONO % 2.1 % (3.8-10.2); NEUT % 89.3 % (42.8-82.8); PLATELET COUNT 298 10^3/uL (134-434); RBC 4.33 M/mm3 (3.60-5.2); RDW 14.2 % (11.6-15.6); WHITE BLOOD COUNT 10.5 K/mm3 (4.0-10.0)
[2022-02-23 22:26] LABS: ALBUMIN 3.8 g/dl (3.4-5.0)
[2022-02-23 22:29] LABS: CREATININE 0.6 mg/dL (0.55-1.3); PHOSPHOROUS 3.5 mg/dL (2.5-4.9)
[2022-02-23 22:31] LABS: BILIRUBIN,TOTAL 0.6 mg/dL (0.2-1); TOT PROT 7.7 g/dl (6.4-8.2)
[2022-02-24 03:23] VITALS: RESP 18; BMI 24.0
[2022-02-24] MEDS ORDERED: SODIUM CHLORIDE 1,000 ML IV SCH (05:00)
[2022-02-24 07:48] LABS: HEMATOCRIT 34.4 % (32.4-45.2); HEMOGLOBIN 11.4 GM/dL (10.7-15.3); MCH 29.9 pg (25.7-33.7); MCHC 33.2 g/dl (32.0-36.0); MEAN CELL VOLUME 89.9 fl (80-96); MEAN PLT VOLUME 8.1 fl (7.5-11.1); PLATELET COUNT 252 10^3/uL (134-434); RBC 3.82 M/mm3 (3.60-5.2); RDW 14.1 % (11.6-15.6); WHITE BLOOD COUNT 9.1 K/mm3 (4.0-10.0)
[2022-02-24 08:12] LABS: ALBUMIN 3.1 g/dl (3.4-5.0); BLOOD UREA NITROGEN 8.2 mg/dL (7-18); CALCIUM 8.6 mg/dL (8.5-10.1); MAGNESIUM 2.1 mg/dL (1.8-2.4)
[2022-02-24 08:30] LABS: BILIRUBIN,TOTAL 0.5 mg/dL (0.2-1); CREATININE 0.6 mg/dL (0.55-1.3); PHOSPHOROUS 2.7 mg/dL (2.5-4.9); TOT PROT 6.1 g/dl (6.4-8.2)
[2022-02-24] MEDS ORDERED: ENOXAPARIN NA (PORCINE) 40 MG/0.4 ML DISP.SYRIN SQ SCH (10:00)
[2022-02-24] MEDS ORDERED: ACETAMINOPHEN 325 MG TABLET (FP) PO PRN (10:36)
[2022-02-24] MEDS ORDERED: MECLIZINE HCL 12.5 MG TABLET PO PRN (10:37)
[2022-02-24 15:38] VITALS: BP 110/60; PULSE 90; TEMP 99.1
== END 2022-02-24 17:10 | disposition home or self-care (01) ==
LOC: JER 18:14 → JERBED 23:32 → J7W 02-24 02:37 → INTOOBSV 02-24 03:19 → OBSVTOIN 02-24 03:19
PROVIDERS: ADMIT Internal Medicine; ATTEND Internal Medicine
PROC: 3E0337Z Introduction of Electrolytic and Water Balance Substance into Peripheral Vein, Percutaneous Approach (ICD-10-PCS; principal; 2022-02-23)
PROC: 3E033GC Introduction of Other Therapeutic Substance into Peripheral Vein, Percutaneous Approach (ICD-10-PCS; 2022-02-23)
PROC: 3E023GC Introduction of Other Therapeutic Substance into Muscle, Percutaneous Approach (ICD-10-PCS; 2022-02-23)
DX: R11.2 Nausea with vomiting, unspecified (principal); L80 Vitiligo; R42 Dizziness and giddiness; Z88.6 Allergy status to analgesic agent; J30.2 Other seasonal allergic rhinitis; Z87.891 Personal history of nicotine dependence
CPT/HCPCS: 36415; 70450-TC; 80053; 81003; 82962; 83036; 83735; 84100; 84443; 84484; 84703; 85025; 85027; 87086; 87186; 93005; 93010; 96361; 96372; 96374; 99285-25; C9803-CS; G0378; U0003; U0005